=== PATIENT | female | born 1950 | race Caucasian/White ===

== ENCOUNTER → 2024-03-23 | Outpatient (REF) | payer MEDICARE | LOC: M SFHCDERM 17:40 | PROVIDERS: ATTEND Dermatology | DX: C44.629 Squamous cell carcinoma of skin of left upper limb, including shoulder (principal) ==

== ENCOUNTER → 2024-06-29 | Outpatient (REF) | payer MEDICARE | LOC: M SFHCDERM 17:59 | PROVIDERS: ATTEND Physician Assistant | DX: C44.319 Basal cell carcinoma of skin of other parts of face (principal) ==

== ENCOUNTER → 2025-03-29 | Outpatient (REF) | payer MEDICARE | LOC: M SFHCDERM 08:21 | PROVIDERS: ATTEND Physician Assistant | DX: C44.629 Squamous cell carcinoma of skin of left upper limb, including shoulder (principal) ==